=== PATIENT | male | born 1995 | race Caucasian/White ===

== ENCOUNTER → 2024-12-21 16:50 | Outpatient (REF) | payer OTHER, SELFPAY | LOC: HWRAD 16:50 | PROVIDERS: ATTENDING PHYSICIAN Family Medicine; FAMILY PHYSICIAN Student in an Organized Health Care Education/Training Program | DX: M25.562 Pain in left knee (principal); R51.9 Headache, unspecified; F41.9 Anxiety disorder, unspecified | CPT/HCPCS: 73564 ==